=== PATIENT | female | born 1975 | race American Indian/Alaskan Native ===

== ENCOUNTER 2018-02-27 20:32 | Emergency (ER) | payer SELFPAY | END 2018-02-27 21:48 | disposition left against medical advice (07) | LOC: DL.ED 20:32 | DX: Z53.21 Procedure and treatment not carried out due to patient leaving prior to being seen by health care provider (principal) ==

== ENCOUNTER 2018-11-10 01:17 | Emergency (ER) | payer SELFPAY ==
[2018-11-10 02:21] VITALS: BP 148/80
== END 2018-11-10 03:16 | disposition left against medical advice (07) ==
LOC: DL.ED 01:17
DX: Z53.21 Procedure and treatment not carried out due to patient leaving prior to being seen by health care provider (principal)

== ENCOUNTER 2018-11-11 12:14 | Emergency (ER) | payer SELFPAY ==
[2018-11-11 12:42] VITALS: BP 132/80
--- NOTE | 2018-11-11 13:45 | EDM.PDOC ---
Scribed by Jazzmine Jaimes 11/11/18 [id number] for David Neves MD ED HPI GENERAL MEDICAL PROBLEM - General Chief Complaint: ENT Problem Stated Complaint: EAR PROBLEMS Time Seen by Provider: 11/11/18 12:44 Source of Information: Reports: Patient, RN, RN Notes Reviewed History Limitations: Reports: No Limitations - History of Present Illness INITIAL COMMENTS - FREE TEXT/NARRATIVE: Patient presents to ER with complaint of bilateral ear pain. Feels like they are plugged and have water in them. This started yesterday. Onset Date: 11/10/18 Duration: Constant Location: Reports: Other (bilateral ears) Quality: Reports: Ache Severity: Mild Improves with: Reports: None Worsens with: Reports: None Associated Symptoms: Reports: No Other Symptoms Ear Pain Score (Numeric/FACES): 5 - Related Data Allergies Allergy/AdvReac Type Severity Reaction Status Date / Time aspirin Allergy Swelling Verified 11/11/18 12:40 Home Meds: Home Meds . [No Known Home Meds] 09/21/14 [History] Past Medical History - Past Health History Medical/Surgical History: Denies Medical/Surgical History Endocrine/Metabolic History: Reports: Diabetes, Type II Social & Family History - Caffeine Use Caffeine Use: Reports: Soda - Living Situation & Occupation Living situation: Reports: with Family ED ROS ENT - Review of Systems Review Of Systems: ROS reveals no pertinent complaints other than HPI. ED EXAM, ENT - Physical Exam Exam: See Below Exam Limited By: No Limitations General Appearance: Alert, WD/WN, No Apparent Distress Eye Exam: Bilateral Eye: Normal Inspection Ears: TM Obscured by Cerumen (B/L), Cerumen Impaction (B/L) Nose: Normal Inspection, Normal Mucousa, No Blood Mouth/Throat: Normal Inspection, Normal Lips Head: Atraumatic, Normocephalic Neck: Normal Inspection, Supple, Non-Tender, Full Range of Motion Respiratory/Chest: No Respiratory Distress Neurological: Alert, Oriented, No Motor/Sensory Deficits Psychiatric: Normal Mood Skin: Warm, Dry, Intact, Normal Color, No Rash ED ENT PROCEDURES - Additional/Other Procedure(s) Other (Free Text) Procedure(s): B/L ear canals irrigated by RN with sterile water until clear. Course - Vital Signs Last Recorded V/S: Last Vital Signs Temp 36.4 C 11/11/18 12:40 Pulse 88 11/11/18 12:40 Resp 16 11/11/18 12:40 BP 132/80 11/11/18 12:40 Pulse Ox 97 11/11/18 12:40 - Orders/Labs/Meds Orders: Active Orders 24 hr Category Date Time Status Ear Irrigation [RC] ASDIRECTED Care 11/11/18 12:54 Active Departure - Departure Time of Disposition: 13:44 Disposition: Home, Self-Care 01 Condition: Good Clinical Impression: Impacted cerumen of both ears Otitis externa Qualifiers: Otitis externa type: swimmer's ear Chronicity: acute Laterality: bilateral Qualified Code(s): H60.333 - Swimmer's ear, bilateral - Discharge Information *PRESCRIPTION DRUG MONITORING PROGRAM REVIEWED*: No *COPY OF PRESCRIPTION DRUG MONITORING REPORT IN PATIENT MASSIMO: No Instructions: Earwax Buildup, Adult Forms: ED Department Discharge Additional Instructions: Rx: Cortisporin Ear drops Follow up in clinic if not completely improved in 1 week. - My Orders Last 24 Hours: My Active Orders 11/11/18 12:54 Ear Irrigation [RC] ASDIRECTED - Assessment/Plan Last 24 Hours: My Active Orders 11/11/18 12:54 Ear Irrigation [RC] ASDIRECTED I have read and agree with the documentation that has been completed regarding this visit. By signing this record, I attest that the documentation was completed in my physical presence and is an accurate record of the encounter.
== END 2018-11-11 14:20 | disposition home or self-care (01) ==
LOC: DL.ED 12:14
DX: H61.23 Impacted cerumen, bilateral (principal); H60.333 Swimmer's ear, bilateral; E11.9 Type 2 diabetes mellitus without complications; Z88.6 Allergy status to analgesic agent
CPT/HCPCS: 69209; 99282; 99283

== ENCOUNTER 2020-01-26 17:00 | Emergency (ER) | payer OTHER ==
[2020-01-26 17:36] VITALS: BP 148/98; PULSE 99
[2020-01-26 18:03] LABS: ANION GAP 12.1 mEq/L (7-13); CHLORIDE,CL 98 mmol/L (98-107); SODIUM,NA 135 mmol/L (136-145)
--- NOTE | 2020-01-26 18:43 | EDM.PDOC ---
Scribed by Jazzmine Jaimes 01/26/20 [id number] for Mignon Anglin NP ED HPI GENERAL MEDICAL PROBLEM - General Chief Complaint: Abdominal Pain Stated Complaint: ABDOMINAL PAIN Time Seen by Provider: 01/26/20 17:36 Source of Information: Reports: Patient, RN, RN Notes Reviewed History Limitations: Reports: No Limitations - History of Present Illness INITIAL COMMENTS - FREE TEXT/NARRATIVE: Patient presents to ER stating epigastric pain since Monday worse today. She has nausea today. She has had no vomiting or diarrhea. She is under moderate stress right now. Hx of type II DM on no medications; use to take a "green Pen" but blood sugars have been fine. Sees PCP at [facility]. Her discomfort had had improved in the ER with passing gas. No fevers, chills, nausea, vomiting or diarrhea. Onset Date: 01/24/20 Duration: Constant Location: Reports: Abdomen Quality: Reports: Ache Severity: Mild Improves with: Reports: None Worsens with: Reports: None Associated Symptoms: Reports: No Other Symptoms Epigastric Pain Score (Numeric/FACES): 5 - Related Data Allergies Allergy/AdvReac Type Severity Reaction Status Date / Time aspirin Allergy Facial Verified 01/26/20 17:45 Swelling Home Meds: Home Meds . [No Known Home Meds] 09/21/14 [History] Past Medical History - Past Health History Medical/Surgical History: Denies Medical/Surgical History HEENT History: Reports: None Cardiovascular History: Reports: None Respiratory History: Reports: None Gastrointestinal History: Reports: None Genitourinary History: Reports: None [employer] History: Reports: None Musculoskeletal History: Reports: None Neurological History: Reports: None Psychiatric History: Reports: None Endocrine/Metabolic History: Reports: Diabetes, Type II Hematologic History: Reports: None Immunologic History: Reports: None Oncologic (Cancer) History: Reports: None Dermatologic History: Reports: None - Infectious Disease History Infectious Disease History: Reports: None - Past Surgical History Head Surgeries/Procedures: Reports: None Social & Family History - Family History Family Medical History: Noncontributory - Caffeine Use Caffeine Use: Reports: Soda - Living Situation & Occupation Living situation: Reports: with Family ED ROS GENERAL - Review of Systems Review Of Systems: Comprehensive ROS is negative, except as noted in HPI. ED EXAM, GI/ABD - Physical Exam Exam: See Below Exam Limited By: No Limitations General Appearance: Alert, WD/WN, No Apparent Distress Eyes: Bilateral: Normal Appearance Ears: Normal External Exam, Normal Canal, Hearing Grossly Normal, Normal TMs Nose: Normal Inspection, Normal Mucosa, No Blood Throat/Mouth: Normal Inspection, Normal Lips, Normal Teeth, Normal Gums, Normal Oropharynx, Normal Voice, No Airway Compromise Head: Atraumatic, Normocephalic Neck: Normal Inspection, Supple, Non-Tender, Full Range of Motion Respiratory/Chest: No Respiratory Distress, Lungs Clear, Normal Breath Sounds, No Accessory Muscle Use, Chest Non-Tender Cardiovascular: Normal Peripheral Pulses, Regular Rate, Rhythm, No Edema, No Gallop, No JVD, No Murmur, No Rub GI/Abdominal Exam: Normal Bowel Sounds, Soft, Non-Tender, No Organomegaly, No Distention, No Abnormal Bruit, No Mass, Pelvis Stable (Female) Exam: Deferred Rectal (Female) Exam: Deferred Back Exam: Normal Inspection, Full Range of Motion, NT Extremities: Normal Inspection, Normal Range of Motion, Non-Tender, Normal Capillary Refill, No Pedal Edema Neurological: Alert, Oriented, CN II-XII Intact, Normal Cognition, Normal Gait, Normal Reflexes, No Motor/Sensory Deficits Psychiatric: Normal Affect, Normal Mood Skin Exam: Warm, Dry, Intact, Normal Color, No Rash Course - Vital Signs Text/Narrative:: No pain when palpating abdomen. She has been having some epigastric burning and pressure. Seemed to improve with passing has. No nausea. Labs shows some mild decrease in her potassium and sodium. No elevation in WBC; infact they are low. Her glucose is elevated as expected; non-fasting and hx of DM. she is not in any distress. I suspect she has been under stress due to family issues and may benefit by using some pepcid. She agreed to see her PCP tomorrow to follow back up on her diabetes. Last Recorded V/S: Last Vital Signs Temp 99.4 F 01/26/20 17:30 Pulse 99 01/26/20 17:30 Resp 18 01/26/20 17:30 BP 148/98 H 01/26/20 17:30 Pulse Ox 96 01/26/20 17:30 - Orders/Labs/Meds Orders: Active Orders 24 hr Category Date Time Status GLYCOSYLATED HEMOGLOBIN,HGBA1C [CHEM] Stat Lab 01/26/20 18:25 Ordered Labs: Laboratory Tests 01/26/20 01/26/20 01/26/20 Range/Units 17:25 17:27 17:27 WBC 3.9 L (5.0-10.0) 10^3/uL RBC 5.70 H (4.2-5.4) 10^6/uL Hgb 14.6 D (12.0-16.0) g/dL Hct 43.8 (37.0-47.0) % MCV 76.8 L D (80-100) fL MCH 25.6 L (27.0-34.0) pg MCHC 33.3 (33.0-35.0) g/dL Plt Count 168 D (150-450) 10^3/uL Sodium 135 L (136-145) mmol/L Potassium 3.1 L (3.5-5.1) mmol/L Chloride 98 (98-107) mmol/L Carbon Dioxide 28 (21-32) mmol/L Anion Gap 12.1 (7-13) mEq/L BUN 12 (7-18) mg/dL Creatinine 0.77 (0.55-1.02) mg/dL Est Cr Clr Drug Dosing 66.27 mL/min Estimated GFR (MDRD) > 60 BUN/Creatinine Ratio 15.6 (No establ ref range) Glucose 269 H (74-99) mg/dL Calcium 8.1 L (8.5-10.1) mg/dL Total Bilirubin 0.4 (0.2-1.0) mg/dL AST 35 (15-37) U/L ALT 49 (14-59) U/L Alkaline Phosphatase 93 (46-116) U/L Total Protein 7.6 (6.4-8.2) g/dL Albumin 3.2 L (3.4-5.0) g/dL Globulin 4.4 Albumin/Globulin Ratio 0.73 Amylase 29 (25-115) U/L Lipase 229 (73-393) U/L Urine Color Yellow (YELLOW) Urine Appearance Slightly cloudy (CLEAR) Urine pH 5.0 (5.0-9.0) Ur Specific [place] 1.015 (1.005-1.030) Urine Protein 100 H (NEGATIVE) Urine Glucose (UA) 500 H (NEGATIVE) Urine Ketones Negative (NEGATIVE) Urine Occult Blood Trace-lysed H (NEGATIVE) Urine Nitrite Negative (NEGATIVE) Urine Bilirubin Negative (NEGATIVE) Urine Urobilinogen 1.0 (0.2-1.0) mg/dL Ur Leukocyte Esterase Negative (NEGATIVE) Urine RBC 5-10 H /HPF Urine WBC 0-5 (0-5/HPF) /HPF Ur Epithelial Cells Moderate H (NOT SEEN) /HPF Urine Bacteria Rare (0-FEW/HPF) /HPF Urine Mucus Few H (NOT SEEN) /LPF Departure - Departure Time of Disposition: 18:40 Disposition: Home, Self-Care 01 Preliminary Cause of *Q: Cardiac Arrest Condition: Good Clinical Impression: Gastritis Qualifiers: Gastritis type: unspecified gastritis Chronicity: acute Gastritis bleeding: without bleeding Qualified Code(s): K29.00 - Acute gastritis without bleeding - Discharge Information Instructions: Gastritis, Adult, [id number] Forms: ED Department Discharge Additional Instructions: Pepcid daily. See your PCP tomorrow regarding your elevated blood sugars and labs.. Sepsis Event Note (ED) - Evaluation Sepsis Screening Result: Possible Sepsis Risk - Focused Exam Vital Signs: Vital Signs Temp Pulse Resp BP Pulse Ox 01/26/20 17:30 99.4 F 99 18 148/98 H 96 - My Orders Last 24 Hours: My Active Orders 01/26/20 18:25 GLYCOSYLATED HEMOGLOBIN,HGBA1C [CHEM] Stat - Assessment/Plan Last 24 Hours: My Active Orders 01/26/20 18:25 GLYCOSYLATED HEMOGLOBIN,HGBA1C [CHEM] Stat I have read and agree with the documentation that has been completed regarding this visit. By signing this record, I attest that the documentation was completed in my physical presence and is an accurate record of the encounter.
[2020-01-26 19:14] LABS: HEMOGLOBIN A1C 9.7 % (<5.7)
== END 2020-01-26 18:50 | disposition home or self-care (01) ==
LOC: DL.ED 17:00
DX: K29.00 Acute gastritis without bleeding (principal); E11.9 Type 2 diabetes mellitus without complications; Z88.6 Allergy status to analgesic agent
CPT/HCPCS: 36415; 80053; 81001; 82150; 83036; 83690; 85027; 99283; 99284

== ENCOUNTER 2022-06-16 16:26 | Emergency (ER) | payer OTHER ==
[2022-06-16 16:37] VITALS: BP 137/97; PULSE 96
[2022-06-16] MEDS ORDERED: Sodium Chloride 0.9% 1,000 ML IV ONE ×2 (16:51→18:05)
[2022-06-16] MEDS ORDERED: Sodium Chloride 0.9% 10 ML Syringe FLUSH PRN (16:51)
[2022-06-16] MEDS ORDERED: Ondansetron 4 MG/2 ML SDV IV ONE ×2 (16:51→17:48)
[2022-06-16 17:20] LABS: CORONAVIRUS COVID-19 NAA NEGATIVE (NEGATIVE); RESPIRATORY SYNCYTIAL VIR NAA NEGATIVE (NEGATIVE)
[2022-06-16 17:31] LABS: ANION GAP 9.9 mEq/L (7-13)
[2022-06-16] MEDS ORDERED: Potassium Chloride 20 MEQ in Premix Bag 1 BAG IV ONE (17:46)
[2022-06-16] MEDS ORDERED: Lidocaine 1% 10 ML MDV INJECT ONE (17:47)
[2022-06-16] MEDS ORDERED: Atropine/Diphenoxylate 0.025-2.5 MG Tab PO ONE (17:48)
[2022-06-16] MEDS ORDERED: Potassium Chloride 10% 20 MEQ/15 ML Soln 15 ML UD Cup PO ONE (17:49)
== END 2022-06-16 20:25 | disposition home or self-care (01) ==
LOC: DL.ED 16:26
DX: J10.1 Influenza due to other identified influenza virus with other respiratory manifestations (principal); E87.6 Hypokalemia; E11.9 Type 2 diabetes mellitus without complications; Z88.8 Allergy status to other drugs, medicaments and biological substances; Z20.822 Contact with and (suspected) exposure to COVID-19
CPT/HCPCS: 0241U; 36415; 80053; 85025; 96361; 96365; 96366; 96375; 96376; 99284-25; A9270-GY; J2405; J3480; J3490; J7030

== ENCOUNTER 2023-06-28 05:57 | Emergency (ER) | payer SELFPAY ==
[2023-06-28 06:23] VITALS: PULSE 90
[2023-06-28] MEDS ORDERED: predniSONE 20 MG Tab PO ONE (06:27)
[2023-06-28 07:08] LABS: CORONAVIRUS COVID-19 NAA NEGATIVE (NEGATIVE); INFLUENZA A NAA NEGATIVE (NEGATIVE); INFLUENZA B NAA NEGATIVE (NEGATIVE); RESPIRATORY SYNCYTIAL VIR NAA NEGATIVE (NEGATIVE)
[2023-06-28 08:06] VITALS: BP 154/90
== END 2023-06-28 08:05 | disposition home or self-care (01) ==
LOC: DL.ED 05:57
DX: R05.9 Cough, unspecified (principal); E11.9 Type 2 diabetes mellitus without complications; Z86.16 Personal history of COVID-19; Z88.6 Allergy status to analgesic agent; Z20.822 Contact with and (suspected) exposure to COVID-19
CPT/HCPCS: 0241U; 99282; 99283; J7512